=== PATIENT | female | born 1960 | race Caucasian/White ===

== ENCOUNTER 2017-10-30 10:03 | Emergency (ER) | payer BC ==
[~2017-10-30] VITALS: Ht 160 cm; Wt 84.1 kg
[2017-10-30 11:02] LABS: HEMOGLOBIN 13.4 G/DL (11.9-15.5); MCHC 33.5 G/DL (30.0-36.0); MCV 89.7 FL (83-99); PLATELET COUNT 256 K/uL (156-360); RBC DIS.WIDTH-CV 12.9 % (11.8-14.6); RED BLOOD COUNT 4.46 M/uL (3.80-5.20); WHITE BLOOD COUNT 10.2 K/uL (4.1-10.2)
[2017-10-30 11:15] LABS: CHLORIDE 100 mEq/L (99-109); POTASSIUM 4.1 mEq/L (3.7-5.4); SODIUM 135 mEq/L (136-147)
[2017-10-30 11:17] LABS: GLUCOSE 142 mg/dL (70-99)
[2017-10-30 11:20] LABS: CREATININE 0.8 mg/dL (0.6-1.3); GFR ESTIMATE (CALCULATED) > 59 mL/min/
[2017-10-30 11:21] LABS: UREA NITROGEN (BUN) 11 mg/dL (9-23)
[2017-10-30 13:05] LABS: APPEARANCE SL.HAZY ((CLEAR)); BILIRUBIN NEGATIVE; BLOOD MODERATE; COLOR YELLOW ((YELLOW)); GLUCOSE (STRIP) NEGATIVE; KETONES 5; LEUKOCYTES NEGATIVE; NITRITE NEGATIVE; PROTEIN (STRIP) 30; SPECIFIC GRAVITY 1.025 (1.000-1.030); UROBILINOGEN 0.2 MG/DL (0.2-1.0)
[2017-10-30 13:14] LABS: BACTERIA RARE /HPF; CALCIUM OXALATE CRYSTALS 1+ /HPF; EPITHELIAL CELLS RARE /HPF; HYALINE CASTS 0-5 /LPF; MUCUS TRACE /LPF; RED BLOOD CELLS 15-20 /HPF (0-5); UCUL ADDED? NO; WHITE BLOOD CELLS 0-5 /HPF (0-5)
[2017-10-30] MEDS ORDERED: ZITHROMAX Z-PA250 MG PO (14:14)
[2017-10-30] MEDS ORDERED: PROAIR HFA8.5 GM IH (14:14)
[2017-10-30] MEDS ORDERED: ROBITUSSIN NIG237 ML PO (14:14)
[2017-10-30] MEDS ORDERED: TESSALON200 MG PO (14:14)
[2017-10-30 14:30] VITALS: BP 108/68
== END 2017-10-30 14:31 | disposition home or self-care (01) ==
LOC: EME 10:03
PROVIDERS: Nurse Practitioner Family
DX: J10.00 Influenza due to other identified influenza virus with unspecified type of pneumonia (principal); R55 Syncope and collapse; S00.03XA Contusion of scalp, initial encounter; W22.09XA Striking against other stationary object, initial encounter; J90 Pleural effusion, not elsewhere classified; Z88.1 Allergy status to other antibiotic agents
CPT/HCPCS: 70450; 71046; 80048; 81003; 85027; 87502; 93005; 94640; 99281; 99284